=== PATIENT | male | born 1995 | race African-American/Black ===

== ENCOUNTER 2019-08-09 19:49 | Emergency (ER) | payer OTHER, SELFPAY ==
--- NOTE | 2019-08-09 20:45 | ER ---
Nurse's Notes [facility] Name: Randy Garrett Age: 23 yrs Sex: Male : 1995 Arrival Date: 08/09/2019 Time: 19:52 Bed 25 Private MD: Diagnosis: Influenza due to identified novel influenza A virus Presentation: 08/09 19:55 Presenting complaint: Patient states: Sorethroat, fever/chills TMAX 102 at home, sg reports having body aches for 1-2 days worsening this morning, reports feeling short of breath while laying flat in bed, feels like fluid sitting in lungs, reports cough to be nonproductive at this time. Transition of care: patient was not received from another setting of care. Onset of symptoms was August 08, 2019. Risk Assessment: Do you want to hurt yourself or someone else? Patient reports no desire to harm self or others. Initial Sepsis Screen: Does the patient meet any 2 criteria? No. Patient's initial sepsis screen is negative. Does the patient have a suspected source of infection? No. Patient's initial sepsis screen is negative. Care prior to arrival: None. 19:55 Method Of Arrival: Ambulatory sg 19:55 Acuity: DORIS 4 sg Historical: - Allergies: 19:58 No Known Allergies; sg - Home Meds: 19:58 None [Active]; sg - PMHx: 19:58 None; sg - PSHx: 19:58 None; sg - Immunization history:: Adult Immunizations up to date. - Social history:: Smoking status: Patient/guardian denies using tobacco. - Ebola Screening: : Patient negative for fever greater than or equal to 101.5 degrees Fahrenheit, and additional compatible Ebola Virus Disease symptoms Patient denies exposure to infectious person Patient denies travel to an Ebola-affected area in the 21 days before illness onset No symptoms or risks identified at this time. Screenin:03 Abuse screen: Denies threats or abuse. Denies injuries from another. Nutritional aj1 screening: No deficits noted. Tuberculosis screening: No symptoms or risk factors identified. 21:05 Fall Risk None identified. aj1 Assessment: 21:03 General: Appears in no apparent distress. comfortable. Pain: Denies pain. Neuro: Level aj1 of Consciousness is awake, alert, obeys commands, Oriented to person, place, time, situation. Cardiovascular: Patient's skin is warm and dry. Respiratory: Reports cough that is hacking, persistent Airway is patent Respiratory effort is even, unlabored, Respiratory pattern is regular, symmetrical, Breath sounds are clear bilaterally. GI: No signs and/or symptoms were reported involving the gastrointestinal system. : No signs and/or symptoms were reported regarding the genitourinary system. EENT: Reports nasal congestion nasal discharge. Derm: No signs and/or symptoms reported regarding the dermatologic system. Skin is pink, warm \T\ dry. normal. Musculoskeletal: No signs and/or symptoms reported regarding the musculoskeletal system. Circulation, motion, and sensation intact. Vital Signs: 19:54 BP 148 / 81; Pulse 87; Resp 20; Temp 99.1; Pulse Ox 100% on R/A; sg ED Course: 19:52 Patient arrived in ED. jg7 19:58 Triage completed. sg 19:58 Arm band placed on. sg 20:24 Sophie Price [facility]C is [facility]. kb 20:25 Red Pinto MD is Attending Physician. kb 20:31 Denia Alaniz, RN is Primary Nurse. aj1 21:03 Patient has correct armband on for positive identification. aj1 21:03 No provider procedures requiring assistance completed. aj1 21:05 Patient did not have IV access during this emergency room visit. aj1 Administered Medications: No medications were administered Outcome: 20:44 Discharge ordered by MD. kb 21:03 Discharged to home ambulatory. aj1 21:03 Condition: good 21:03 Discharge instructions given to patient, family, Instructed on discharge instructions, follow up and referral plans. 21:05 Patient left the ED. aj1 Signatures: Sophie Price FNP-C FNP-Denia Mo, RN RN Rashaun Nath RN LUIZ Melisa Nichols jg7
--- NOTE | 2019-08-09 20:46 | EDPHYS ---
Physician Documentation [facility] Name: Randy aGrrett Age: 23 yrs Sex: Male : 1995 Arrival Date: 08/09/2019 Time: 19:52 Bed 25 Private MD: ED Physician Red Pinto HPI: 08/09 20:41 This 23 yrs old Black Male presents to ER via Ambulatory with complaints of Cough. kb 20:41 The patient or guardian reports cough, that is intermittent, described as moderate, kb with no sputum, flu symptoms, low-grade fever, myalgias. Onset: The symptoms/episode began/occurred 5 day(s) ago. Severity of symptoms: At their worst the symptoms were moderate, in the emergency department the symptoms are unchanged. Modifying factors: The symptoms are alleviated by nothing, the symptoms are aggravated by nothing. Associated signs and symptoms: Pertinent positives: fever, nausea, rhinorrhea. The patient has not experienced similar symptoms in the past. The patient has not recently seen a physician. Pt reports he had nausea, chills, fever and body aches on Thursday. Stayed in bed for the next 24 hours and then developed a cough. Reports cough has continued and has been waking up in sweat.. Historical: - Allergies: 19:58 No Known Allergies; sg - Home Meds: 19:58 None [Active]; sg - PMHx: 19:58 None; sg - PSHx: 19:58 None; sg - Immunization history:: Adult Immunizations up to date. - Social history:: Smoking status: Patient/guardian denies using tobacco. - Ebola Screening: : Patient negative for fever greater than or equal to 101.5 degrees Fahrenheit, and additional compatible Ebola Virus Disease symptoms Patient denies exposure to infectious person Patient denies travel to an Ebola-affected area in the 21 days before illness onset No symptoms or risks identified at this time. ROS: 20:41 ENT: Negative for injury, pain, and discharge, Neck: Negative for injury, pain, and kb swelling, Cardiovascular: Negative for chest pain, palpitations, and edema, Abdomen/GI: Negative for abdominal pain, nausea, vomiting, diarrhea, and constipation, Back: Negative for injury and pain, MS/Extremity: Negative for injury and deformity, Skin: Negative for injury, rash, and discoloration, Neuro: Negative for headache, weakness, numbness, tingling, and seizure. 20:41 Constitutional: Positive for body aches, chills, fatigue, fever, malaise. 20:41 Respiratory: Positive for cough, Negative for dyspnea on exertion, hemoptysis, orthopnea, pleurisy, shortness of breath, sputum production, wheezing. Exam: 20:41 Constitutional: This is a well developed, well nourished patient who is awake, alert, kb and in no acute distress. Head/Face: Normocephalic, atraumatic. Neck: Trachea midline, no thyromegaly or masses palpated, and no cervical lymphadenopathy. Supple, full range of motion without nuchal rigidity, or vertebral point tenderness. No Meningismus. Chest/axilla: Normal chest wall appearance and motion. Nontender with no deformity. No lesions are appreciated. Cardiovascular: Regular rate and rhythm with a normal S1 and S2. No gallops, murmurs, or rubs. Normal PMI, no JVD. No pulse deficits. Respiratory: Lungs have equal breath sounds bilaterally, clear to auscultation and percussion. No rales, rhonchi or wheezes noted. No increased work of breathing, no retractions or nasal flaring. Abdomen/GI: Soft, non-tender, with normal bowel sounds. No distension or tympany. No guarding or rebound. No evidence of tenderness throughout. Back: No spinal tenderness. No costovertebral tenderness. Full range of motion. Skin: Warm, dry with normal turgor. Normal color with no rashes, no lesions, and no evidence of cellulitis. MS/ Extremity: Pulses equal, no cyanosis. Neurovascular intact. Full, normal range of motion. Neuro: Awake and alert, GCS 15, oriented to person, place, time, and situation. Cranial nerves II-XII grossly intact. Motor strength 5/5 in all extremities. Sensory grossly intact. Cerebellar exam normal. Normal gait. 20:41 ENT: External ear(s): are unremarkable, Ear canal(s): are normal, TM's: fluid levels, bilaterally, Nose: is normal, Mouth: is normal, Posterior pharynx: is normal. Vital Signs: 19:54 BP 148 / 81; Pulse 87; Resp 20; Temp 99.1; Pulse Ox 100% on R/A; sg MDM: 20:25 Patient medically screened. kb 20:43 Data reviewed: vital signs, nurses notes. Data interpreted: Pulse oximetry: on room air kb is 100 %. Interpretation: normal. Counseling: I had a detailed discussion with the patient and/or guardian regarding: the historical points, exam findings, and any diagnostic results supporting the discharge/admit diagnosis, lab results, the need for outpatient follow up, a family practitioner, to return to the emergency department if symptoms worsen or persist or if there are any questions or concerns that arise at home. 08/09 19:59 Order name: Flu; Complete Time: 20:36 08/09 19:59 Order name: Strep; Complete Time: 20:36 08/09 20:31 Order name: Throat Culture EDMS Administered Medications: No medications were administered Disposition: 08/10 00:12 Co-signature as Attending Physician, Red Pinto MD. rn Disposition: 08/09/19 20:44 Discharged to Home. Impression: Influenza due to identified novel influenza A virus. - Condition is Stable. - Discharge Instructions: Influenza, Adult, [id number], Viral Respiratory Infection, [id number]. - Medication Reconciliation Form, Thank You Letter, Antibiotic Education, Prescription Opioid Use form. - Work release form (08/10/19 09:47). bd - Follow up: Emergency Department; When: As needed; Reason: Worsening of condition. Follow up: Private Physician; When: 2 - 3 days; Reason: Recheck today's complaints, Continuance of care, Re-evaluation by your physician. Signatures: Dispatcher [employer] [facility] Sophie Price, ADVENTURE THERAPIST-C ADVENTURE THERAPIST-Ckb Denia Alaniz, LUIZ RN aj1 Rashaun Jeffers RN RN sg Nieto, Roman, MD MD rn Dirrim, Barbara bd Corrections: (The following items were deleted from the chart) 08/09 20:47 20:07 Chest Pa And Lat (2 Views)+RAD.RAD.BRZ ordered. [facility] 21:05 20:44 08/09/2019 20:44 Discharged to Home. Impression: Influenza due to identified aj1 novel influenza A virus. Condition is Stable. Forms are Medication Reconciliation Form, Thank You Letter, Antibiotic Education, Prescription Opioid Use. Follow up: Emergency Department; When: As needed; Reason: Worsening of condition. Follow up: Private Physician; When: 2 - 3 days; Reason: Recheck today's complaints, Continuance of care, Re-evaluation by your physician. kb
[2019-08-09 21:10] VITALS: BP 148/81; TEMP 99.1; O2SAT 100
== END 2019-08-09 21:05 | disposition home or self-care (01) ==
LOC: ER 19:49
DX: J09.X2 Influenza due to identified novel influenza A virus with other respiratory manifestations (principal)
CPT/HCPCS: 87070; 87081; 87804; 99281

== ENCOUNTER 2023-11-02 09:48 | Emergency (ER) | payer OTHER ==
--- NOTE | 2023-11-02 09:58 | ER ---
Nurse's Notes [facility] Name: Randy Garrett Age: 27 yrs Sex: Male : 1995 Arrival Date: 11/02/2023 Time: 09:48 Bed IW1 Private MD: Diagnosis: Bilateral Otitis Externa Presentation: 11/01 09:55 Chief complaint: Patient states: R ear pain for 4 days. Coronavirus screen: Client ll1 denies travel out of the [place] in the last 14 days. At this time, the client does not indicate any symptoms associated with coronavirus-19. Ebola Screen: Patient denies travel to an Ebola-affected area in the 21 days before illness onset. Initial Sepsis Screen: Does the patient meet any 2 criteria? No. Patient's initial sepsis screen is negative. Does the patient have a suspected source of infection? No. Patient's initial sepsis screen is negative. Risk Assessment: Do you want to hurt yourself or someone else? Patient reports no desire to harm self or others. Onset of symptoms was October 29, 2023. 09:55 Method Of Arrival: Ambulatory ll1 09:55 Acuity: DORIS 4 ll1 Triage Assessment: 09:55 General: Appears uncomfortable, Behavior is calm, cooperative, appropriate for age. ll1 Pain: Complains of pain in right ear Quality of pain is described as aching. EENT: Reports pain in right ear. Historical: - Allergies: 09:54 No Known Allergies; ll1 - Home Meds: 09:55 None [Active]; ll1 - PMHx: 09:55 None; ll1 - PSHx: 09:55 None; ll1 - Immunization history:: Adult Immunizations up to date. - Social history:: Smoking status: Patient denies any tobacco usage or history of. Screenin:00 [facility] ED Fall Risk Assessment (Adult) History of falling in the last 3 months, ll1 including since admission No falls in past 3 months (0 pts) Confusion or Disorientation No (0 pts) Intoxicated or Sedated No (0 pts) Impaired Gait No (0 pts) Mobility Assist Device Used No (0 pt) Altered Elimination No (0 pt) Score/Fall Risk Level 0 - 2 = Low Risk Oriented to surroundings, Hourly rounding (assess needs \T\ fall precautionary measures) done. Abuse screen: Denies threats or abuse. Nutritional screening: No deficits noted. Tuberculosis screening: No symptoms or risk factors identified. Assessment: 10:00 Reassessment: No changes from previously documented assessment. ll1 Vital Signs: 09:55 BP 153 / 103; Pulse 82; Resp 17; Temp 97.2; Pulse Ox 98% ; ll1 ED Course: 09:52 Patient arrived in ED. mr 09:52 Jacques Moore MD is Attending Physician. ec2 09:55 Triage completed. ll1 09:56 Arm band placed on. ll1 10:01 No provider procedures requiring assistance completed. Patient did not have IV access ll1 during this emergency room visit. 10:23 Patient has correct armband on for positive identification. Bed in low position. ll1 Provided Education on: Finish all prescribed antibiotics. Administered Medications: No medications were administered Medication: 10:23 VIS not applicable for this client. 1 Outcome: 09:57 Discharge ordered by . ec2 10:01 Patient left the ED. ll1 10:01 Discharged to home ambulatory, ll1 10:01 Condition: stable 10:01 Discharge instructions given to patient, Instructed on discharge instructions, follow up and referral plans. medication usage, Demonstrated understanding of instructions, follow-up care, medications, Prescriptions given X 1, Signatures: Dedra Carson, Reg Reg mr Lavonne Welch, RN RN 1 Jacques Moore MD MD ec2
--- NOTE | 2023-11-02 09:58 | EDPHYS ---
Physician Documentation [facility] Name: Randy Garrett Age: 27 yrs Sex: Male : 1995 Arrival Date: 11/02/2023 Time: 09:48 Bed IW1 Private MD: ED Physician Jacques Moore HPI: 11/01 10:01 This 27 yrs old Black Male presents to ER via Ambulatory with complaints of Ear Pain. ec2 10:01 Patient arrives today due to concern for right ear pain. Patient reports no discharge. ec2 Patient reports no fevers or chills, no nausea or vomiting. States that he recently went swimming last week. Denies any cough or cold symptoms, denies any difficulty breathing.. Historical: - Allergies: 09:54 No Known Allergies; ll1 - Home Meds: 09:55 None [Active]; ll1 - PMHx: 09:55 None; ll1 - PSHx: 09:55 None; ll1 - Immunization history:: Adult Immunizations up to date. - Social history:: Smoking status: Patient denies any tobacco usage or history of. ROS: 10:01 Constitutional: as per hpi ec2 Exam: 10:01 Constitutional: GEN: NAD Head: atraumatic Eyes: EOMI Ears: Right ear with significant ec2 erythema and inflammation noted, patent canal, intact TM. Left ear with scant amount of erythema noted. CV: regular rate LUNGS: no respiratory distress ABD: non-distended SKIN: no evidence of rashes MSK: no evidence of trauma NEURO: moves all extremities equally Vital Signs: 09:55 BP 153 / 103; Pulse 82; Resp 17; Temp 97.2; Pulse Ox 98% ; ll1 MDM: 09:56 Patient medically screened. ec2 10:01 Data reviewed: vital signs. ED course: Patient arrives today for evaluation of right ec2 ear pain. Lamination Heri for your findings noted above. Presentation is with otitis externa, no evidence of tympanic membrane perforation, no evidence of otitis media. Will start on eardrops and have follow-up primary care doctor. Return precautions given.. Administered Medications: No medications were administered Disposition Summary: 11/02/23 09:57 Discharge Ordered Notes: Location: Home ec2 Condition: Stable ec2 Diagnosis - Bilateral Otitis Externa ec2 Followup: ec2 - With: Private Physician - When: - Reason: Re-evaluation by your physician Discharge Instructions: - Discharge Summary Sheet ll1 - Otitis Externa, [id number] ec2 Forms: - Work release form ll1 - Medication Reconciliation Form ec2 - Thank You Letter ec2 - Antibiotic Education ec2 - Prescription Opioid Use ec2 - Patient Portal Instructions ec2 - Leadership Thank You Letter ec2 Prescriptions: - ofloxacin 0.3 % Otic drops - instill 5 drop OTIC route daily for 7 days; 1 unit; Refills: 0, Product ec2 Selection Permitted Signatures: Lavonne Welch RN RN ll1 Jacques Moore MD MD ec2
[2023-11-02 14:26] VITALS: BP 153/103; TEMP 97.2; O2SAT 98
== END 2023-11-02 10:01 | disposition home or self-care (01) ==
LOC: ER 09:48
DX: H60.93 Unspecified otitis externa, bilateral (principal)
CPT/HCPCS: 99283